=== PATIENT | female | born 1960 | race Caucasian/White ===

== ENCOUNTER 2020-09-11 09:06 | Outpatient (CLI) | payer OTHER, SELFPAY ==
--- NOTE | 2020-09-11 09:11 | MM_ITS ---
WS: [id number] BILATERAL SCREENING DIGITAL MAMMOGRAM WITH CAD HISTORY: SCREENING COMPARISON: None available. Bilateral CC and MLO views submitted. Computer aided detection analyzed. Breast composition: The breasts are heterogeneously dense, which may obscure small masses. No suspici ous masses, microcalcifications or architectural distortion. Benign scattered punctate calcifications and vascular calcifications. Lymph node in the posterior LEFT breast seen on the lateral projection. MM/[id number] IMPRESSION: BI-RADS: 2-Benign FOLLOW UP: 1 Year Follow-up
== END 2020-09-11 09:07 | disposition home or self-care (01) ==
LOC: RADSHAW 09:10
PROVIDERS: PCP Physician Assistant; Visit Provider Physician Assistant
DX: Z12.31 Encounter for screening mammogram for malignant neoplasm of breast (principal)
CPT/HCPCS: 77067

== ENCOUNTER → 2021-05-12 11:20 | Outpatient (BNVA) | payer OTHER, SELFPAY | PROVIDERS: PCP Physician Assistant; Visit Provider Nurse Practitioner | DX: N39.0 Urinary tract infection, site not specified (principal) | CPT/HCPCS: 81000 ==

== ENCOUNTER 2021-07-31 12:43 | Outpatient (CLI) | payer OTHER, SELFPAY ==
--- NOTE | 2021-07-31 13:14 | MM_ITS ---
WS: [id number] BILATERAL 3D TOMOSYNTHESIS DIGITAL DIAGNOSTIC MAMMOGRAPHY WITH CAD CLINICAL INFORMATION: MASTODYNIA HISTORY: History of skin cancer RIGHT Breast pain. COMPARISON: September 11, 2020 TECHNIQUE: Bilateral CC, MLO, and ML views. FINDINGS: The breasts are composed of heterogeneous fibroglandular density, which can limit the detection of sm all underlying mass lesions. Vascular calcification. A few additional punctate calcifications. Biopsy clip inferior medial RIGHT breast.. Ultrasound RIGHT breast is pending. Increasing focal asymmetric nodular density upper outer LEFT breast may represent cluster of LEFT nod es but indeterminant. This area measures approximately 2.2 x 0.8 cm. Recommend further evaluation wit h LEFT diagnostic mammography and ultrasound. ULTRASOUND BREAST RIGHT TECHNIQUE: Ultrasound right breast focused area of concern. CLINICAL INFORMATION: MASTODYNIA COMPARISON: None. FINDINGS: Ultrasound RIGHT breast at the 1 to 5:00 position at the areola in the area of concern. Shadowing bio psy clip seen at the 3:00 position. No suspicious cystic or solid lesions. No lesions to target for b iopsy. MM/[id number] IMPRESSION: BI-RADS: 0-Incomplete: Need additional imaging evaluation FOLLOW UP: Need Additional Imaging RECOMMEND LEFT BREAST DIAGNOSTIC MAMMOGRAPHY AND ULTRASOUND.
== END 2021-07-31 12:44 | disposition home or self-care (01) ==
LOC: RAD 12:45
PROVIDERS: PCP Physician Assistant; Visit Provider Physician Assistant
DX: N64.4 Mastodynia (principal)
CPT/HCPCS: 76642; 77062

== ENCOUNTER 2021-09-16 10:25 | Outpatient (CLI) | payer BC, MEDICAID, SELFPAY ==
--- NOTE | 2021-09-16 10:37 | MM_ITS ---
WS: [id number] LEFT 3D TOMOSYNTHESIS DIGITAL MAMMOGRAPHY WITH CAD CLINICAL INFORMATION: INCONCLUSIVE MAMMOGRAM HISTORY: COMPARISON: 07/31/2021 and 09/11/2020 TECHNIQUE: 3 views of the left breast were obtained. FINDINGS: The left breast is composed of heterogeneous fibroglandular density tissue, which can limit the detec tion of small underlying mass lesions. Vascular calcification. Again seen is asymmetric nodular densi ties upper outer LEFT breast unchanged from previous. Ultrasound is pending. ULTRASOUND BREAST LEFT TECHNIQUE: Ultrasound left breast focused area of concern. CLINICAL INFORMATION: INCONCLUSIVE MAMMOGRAM COMPARISON: None. FINDINGS: Ultrasound LEFT breast 12:00-200 position, 1-4 cm from the nipple. Dense underlying parenchymal tissu e. Evidence of fibrocystic changes. No suspicious cystic or solid lesions. No lesions to target for b iopsy. MM/[id number] IMPRESSION: BI-RADS: 2-Benign FOLLOW UP: 1 Year Follow-up Recommend return to annual screening mammography.
== END 2021-09-16 10:26 | disposition home or self-care (01) ==
PROVIDERS: PCP Physician Assistant; Visit Provider Physician Assistant
DX: R92.2 Inconclusive mammogram (principal)
CPT/HCPCS: 76642; 77061

== ENCOUNTER → 2021-10-21 08:01 | Outpatient (BNVA) | payer BC, MEDICAID, SELFPAY | PROVIDERS: PCP Physician Assistant; Referring Provider Physician Assistant; Visit Provider Podiatrist Foot & Ankle Surgery | DX: Z79.4 Long term (current) use of insulin (principal); E11.9 Type 2 diabetes mellitus without complications; M21.629 Bunionette of unspecified foot; Q82.8 Other specified congenital malformations of skin | CPT/HCPCS: 17110; 99204 ==

== ENCOUNTER 2021-10-28 06:14 | Day surgery (SDC) | payer BC, MEDICAID, SELFPAY ==
[2021-10-24 12:56] VITALS: BMI 21.9
[2021-10-28 06:40] VITALS: BP 143/70; PULSE 51; RESP 18; TEMP 36.3; O2SAT 99
[2021-10-28] MEDS: sodium chloride 0.9% 1,000 ML 30 ML IV (06:58)
--- NOTE | 2021-10-28 07:33 | P.HP_ITS ---
Same Day Surgery H&P Indication for Procedure/HPI DATE OF PROCEDURE: October 28, 2021 CHIEF COMPLAINT/INDICATIONFOR SURGICAL PROCEDURE: History of polyps PREOP DIAGNOSIS: History of polyps PLANNED PROCEDURE: Operation Date: 10/28/21 07:45 Proposed Procedures p Colonoscopy 51286,Z12.11(Not Applicable) - Buddy Doyle MD Medications/Allergies* Home Medications Medication Instructions Recorded Confirmed Type aspirin 81 mg tablet,delayed 81 mg PO DAILY 03/25/21 10/28/21 History release (Adult Aspirin Regimen) cholecalciferol (vitamin D3) 25 25 mcg PO DAILY 03/25/21 10/24/21 History mcg (1,000 unit) capsule pantoprazole 40 mg tablet,delayed 40 mg PO DAILY 03/25/21 10/24/21 History release albuterol sulfate 90 mcg/actuation 2 puff inhalation Q4H PRN 09/25/21 10/24/21 History aerosol inhaler Shortness Of Breath atorvastatin 80 mg tablet 80 mg PO DAILY 09/25/21 10/24/21 History estradiol 1 appful vaginal .Once a week 09/25/21 10/28/21 History fluticasone propionate 44 2 puff inhalation BID 09/25/21 10/24/21 History mcg/actuation HFA aerosol inhaler (Flovent HFA) fluticasone propionate 50 1 spray intranasal DAILY 09/25/21 10/24/21 History mcg/actuation nasal spray,suspension (Flonase Allergy Relief) ramipril 2.5 mg capsule 5 mg PO DAILY 09/25/21 10/24/21 History triamcinolone acetonide 0.025 % 1 applic topical BID 09/25/21 10/24/21 History topical cream cetirizine 10 mg tablet (All Day 10 mg PO DAILY PRN allergies 10/17/21 10/24/21 History Allergy (cetirizine)) Allergies/Adverse Reactions Allergy/AdvReac Type Severity Reaction Status Date / Time Sulfa (Sulfonamide Allergy Severe hives Verified 10/24/21 12:59 Antibiotics) ciprofloxacin Allergy ADR-Itching Verified 10/24/21 12:59 clopidogrel Allergy Unknown Verified 10/24/21 12:59 Current Medications: Generic Name Dose Route Start Last Admin Trade Name Freq PRN Reason Stop Dose Admin Sodium Chloride 1,000 mls @ 30 mls/hr 10/28/21 06:30 10/28/21 06:58 Sodium Chloride 0.9% IV 10/29/21 06:29 30 mls/hr .Q24H JEFF Administration Pertinent History/Comorbid Conditions* Medical History (Updated 10/17/21 @ 11:03 by Buddy Doyle MD) Diabetes History of colon polyps History of coronary angiogram 04/2020, Hyperlipidemia Hypertension Myocardial infarction x2 Sleep apnea Surgical History (Updated 03/25/21 @ 14:48 by Emanuel Silverio MD) History of adenoidectomy History of x3 History of cholecystectomy History of lumpectomy of right breast 2008 History of partial hysterectomy 1980s History of tonsillectomy Family History (Updated 03/25/21 @ 14:21 by Karla Elizabeth) Diabetes CAD (coronary artery disease) Dementia Denies family history of Cancer Stroke Social History Smoking and tobacco status: current some day smoker Pertinent Exam Findings alert, oriented x 3, clear to auscultation bilaterally, regular rate & rhythm, operative site marked and procedure specific exam findings Recommendations Surgery/Procedure today Coding Level of Care Code Acute Anesthesiology Medical Doctor for Kristin Carrera
--- NOTE | 2021-10-28 08:05 | ANES.PREANE2 ---
Pre-Anesthetic Assessment Height/Weight: Height 1.6 m Weight 56.245 kg Temp Pulse Resp BP Pulse Ox O2 Del Method 97.3 F L 51 L 18 143/70 99 10/28/21 06:40 10/28/21 06:40 10/28/21 06:40 10/28/21 06:40 10/28/21 06:40 10/28/21 06:40 Preop Diagnosis: History of polyps Operation Date: 10/28/21 07:45 Proposed Procedures p Colonoscopy 15490,Z12.11(Not Applicable) - Buddy Doyle MD Was Beta Jonn taken within 24 hours: N/A Was Clonidine taken within 24 hours: N/A Last intake: Intake Last Liquid Date 10/27/21 Last Liquid Time 21:30 Last Solid Date 10/26/21 Last Solid Time 17:30 Social Tobacco 1/4 ppweek pack(s) per day Exam alert and oriented x 3 Airway Submandibular: within normal limits Cervical ROM: within normal limits Mallampati: Class I History/ROS No significant history except as noted Pulmonary Chronic Obstructive Pulmonary Disease allergies CV/HEM Coronary Artery Disease, Hypertension and Myocardial Infarction (stents X4 2020) None reported Hepatic None reported GI Gastroesophageal Reflux Disease Metabolic None reported Musc/skel None reported Neuropsych None reported Anesthetic Plan ASA status: 3 Anesthesia: MAC Risk of > 500 ml blood loss (7ml/kg in children): No Medications/Allergies Home Medications Medication Instructions Recorded Confirmed Last Taken Type aspirin 81 mg tablet,delayed 81 mg PO DAILY 03/25/21 10/28/21 10/25/21 History release (Adult Aspirin Regimen) cholecalciferol (vitamin D3) 25 25 mcg PO DAILY 03/25/21 10/24/21 10/26/21 History mcg (1,000 unit) capsule pantoprazole 40 mg tablet,delayed 40 mg PO DAILY 03/25/21 10/24/21 10/26/21 History release albuterol sulfate 90 mcg/actuation 2 puff inhalation Q4H PRN 09/25/21 10/24/21 Unknown History aerosol inhaler Shortness Of Breath atorvastatin 80 mg tablet 80 mg PO DAILY 09/25/21 10/24/21 10/26/21 History estradiol 1 appful vaginal .Once a week 09/25/21 10/28/21 10/26/21 History fluticasone propionate 44 2 puff inhalation BID 09/25/21 10/24/21 10/26/21 History mcg/actuation HFA aerosol inhaler (Flovent HFA) fluticasone propionate 50 1 spray intranasal DAILY 09/25/21 10/24/21 10/26/21 History mcg/actuation nasal spray,suspension (Flonase Allergy Relief) ramipril 2.5 mg capsule 5 mg PO DAILY 09/25/21 10/24/21 10/26/21 History triamcinolone acetonide 0.025 % 1 applic topical BID 09/25/21 10/24/21 Unknown History topical cream cetirizine 10 mg tablet (All Day 10 mg PO DAILY PRN allergies 10/17/21 10/24/21 10/26/21 History Allergy (cetirizine)) Allergies Allergy/AdvReac Type Severity Reaction Status Date / Time Sulfa (Sulfonamide Allergy Severe hives Verified 10/24/21 12:59 Antibiotics) ciprofloxacin Allergy ADR-Itching Verified 10/24/21 12:59 clopidogrel Allergy Unknown Verified 10/24/21 12:59 Current Medications Generic Name Dose Route Start Last Admin Trade Name Freq PRN Reason Stop Dose Admin Sodium Chloride 1,000 mls @ 30 mls/hr 10/28/21 06:30 10/28/21 06:58 Sodium Chloride 0.9% IV 10/29/21 06:29 30 mls/hr .Q24H JEFF Administration PFSH Anesthesia Medical History Diabetes History of colon polyps History of coronary angiogram 04/2020, Hyperlipidemia Hypertension Myocardial infarction x2 Sleep apnea Surgical History History of adenoidectomy History of x3 History of cholecystectomy History of lumpectomy of right breast 2008 History of partial hysterectomy 1980s History of tonsillectomy Family History Other CAD (coronary artery disease) Dementia Diabetes Denies family history of Cancer Stroke Social History Smoking and tobacco status: current some day smoker Data Anesthesia Cardiac Studies: No Data to Display
[2021-10-28 08:46] VITALS: BP 175/77; PULSE 63; RESP 16; O2SAT 97
[2021-10-28 08:51] VITALS: BP 153/79; PULSE 60; RESP 18; O2SAT 92
[2021-10-28 08:56] VITALS: BP 171/84; PULSE 66; RESP 18; O2SAT 96
--- NOTE | 2021-10-28 13:25 | ANE.PACU2 ---
Inpatient post-anesthesia follow up: Airway intact: Yes Vital signs: Temperature 97.3 F Pulse Rate 66 Respiratory Rate 18 Blood Pressure 171/84 Pulse Oximetry 96 Oxygen Delivery Me thod Room Air Oxygen Flow Rate Fraction of Inspir ed Oxygen Hydration adequate: Yes Nausea and vomiting: No Pain level: 1 Mental status: Baseline
== END 2021-10-28 09:16 | disposition home or self-care (01) ==
PROVIDERS: PCP Physician Assistant; Visit Provider Internal Medicine
PROC: 0DJD8ZZ Inspection of Lower Intestinal Tract, Via Natural or Artificial Opening Endoscopic (ICD-10-PCS; CPT 45378; principal; 2021-10-28 07:45)
DX: Z12.11 Encounter for screening for malignant neoplasm of colon (principal); E11.9 Type 2 diabetes mellitus without complications; I10 Essential (primary) hypertension; E78.5 Hyperlipidemia, unspecified; J44.9 Chronic obstructive pulmonary disease, unspecified; I25.2 Old myocardial infarction; K21.9 Gastro-esophageal reflux disease without esophagitis; G47.30 Sleep apnea, unspecified; Z86.010 Personal history of colon polyps; F17.200 Nicotine dependence, unspecified, uncomplicated; Z79.51 Long term (current) use of inhaled steroids; Z79.82 Long term (current) use of aspirin; Z88.2 Allergy status to sulfonamides; Z88.1 Allergy status to other antibiotic agents; I25.10 Atherosclerotic heart disease of native coronary artery without angina pectoris; Z95.5 Presence of coronary angioplasty implant and graft
CPT/HCPCS: 45378; J2704; J3490; J7030

== ENCOUNTER → 2022-02-03 10:45 | Outpatient (BNVA) | payer BC, MEDICAID, SELFPAY | PROVIDERS: PCP Physician Assistant; Visit Provider Urology | DX: R31.29 Other microscopic hematuria (principal); N39.0 Urinary tract infection, site not specified; Z72.0 Tobacco use | CPT/HCPCS: 87086; 88112 ==

== ENCOUNTER 2022-05-13 14:24 | Outpatient (CLI) | payer BC, MEDICAID, SELFPAY | END 2022-05-13 14:25 | disposition home or self-care (01) | LOC: SPT 14:25 | PROVIDERS: PCP Physician Assistant; Visit Provider Orthopaedic Surgery | DX: Z46.89 Encounter for fitting and adjustment of other specified devices (principal); M67.432 Ganglion, left wrist | CPT/HCPCS: 97760; L3908 ==

== ENCOUNTER 2022-06-17 08:35 | Outpatient (CLI) | payer BC, MEDICAID, SELFPAY ==
--- NOTE | 2022-06-17 08:30 | US_ITS ---
WS: [id number] RENAL ULTRASOUND HISTORY: HEMATURIA COMPARISON: None available. TECHNIQUE: 2-D and color Doppler imaging of the kidney submitted. Right kidney: 11.1 cm x 3.8 cm x 4.0 cm. Cortex: 1.3 cm Normal echogenicity with no hydronephrosis or mass. Extrarenal pelvis. Left kidney: 10.6 cm x 3.7 cm x 4.2 cm. Cortex: 1.2 cm Normal echogenicity with no hydronephrosis or mass. Extrarenal pelvis. Aorta: Mild atherosclerosis. Urinary Bladder: Normal distention. US/US renal BI* [id number] IMPRESSION: 1. No hydronephrosis. 2. Normal size kidneys. 3. Small fluid collections bilaterally in the central kidneys are probably ext rarenal pelves.
--- NOTE | 2022-06-17 08:45 | XR_ITS ---
WS: [id number] KUB, AP view, 06/17/2022 Clinical Data: HEMATURIA Comparison: None. Findings: No abnormal intraabdominal masses or calcifications are seen. There is no dilatated small bowel or ev idence of obstruction. There are surgical clips in the right upper quadrant from a cholecystectomy. There is a moderate amou nt of fecal material throughout the colon. There are surgical clips in the true pelvis. XR/XR KUB [id number] Impression: Negative KUB.
== END 2022-06-17 08:36 | disposition home or self-care (01) ==
LOC: RAD 08:41
PROVIDERS: PCP Physician Assistant; Visit Provider Urology
DX: R31.29 Other microscopic hematuria (principal)
CPT/HCPCS: 74018; 76770; 81003

== ENCOUNTER → 2022-12-10 08:56 | Outpatient (BNVA) | payer BC, MEDICAID, SELFPAY | PROVIDERS: PCP Physician Assistant; Visit Provider Nurse Practitioner | DX: M67.432 Ganglion, left wrist (principal); M25.532 Pain in left wrist; Z01.812 Encounter for preprocedural laboratory examination | CPT/HCPCS: 36415; 73110; 80053; 85025 ==

== ENCOUNTER 2022-12-19 05:25 | Day surgery (SDC) | payer BC, MEDICAID, SELFPAY ==
[2022-12-19] VITALS (9 sets, daily range): BP systolic 113–169; BP diastolic 62–95; PULSE 44–58; RESP 18–20; TEMP 36.1–36.2; O2SAT 95–100; BMI 24.7
[2022-12-19] MEDS: sodium chloride 0.9% 1,000 ML 30 ML IV (06:02)
[2022-12-19] MEDS: acetaminophen 1,000 MG/100 ML PIGGYBACK 400 MG IV (06:07)
[2022-12-19] MEDS: CELEcoxib 200 mg Capsule 400 MG PO (06:08)
[2022-12-19 06:20] LABS: Glucose Point of Care 142 mg/dL (70-110)
--- NOTE | 2022-12-19 06:43 | ANES.PREANE2 ---
Pre-Anesthetic Assessment Height/Weight: Height 1.6 m Weight 63.503 kg Temp Pulse Resp BP Pulse Ox O2 Del Method 97.2 F L 45 L 18 138/80 100 Room Air 12/19/22 06:00 12/19/22 06:00 12/19/22 06:00 12/19/22 06:00 12/19/22 06:00 12/19/22 06:00 Operation Date: 12/19/22 07:00 Proposed Procedures p Excision Of Ganglion Cyst Removal Of Ganglion Cyst(Left) - Cheyenne Thomas MD Familial anesthetic complications: None Was Beta Jonn taken within 24 hours: N/A Was Clonidine taken within 24 hours: N/A Last intake: Intake Last Liquid Date 12/19/22 Last Liquid Time 20:00 Last Solid Date 12/18/22 Last Solid Time 18:00 Social Tobacco and No alcohol Exam alert, oriented x 3, clear to auscultation bilaterally and regular rate & rhythm Airway Mallampati: Class II Dentition: full CV/HEM Hypertension GI Gastroesophageal Reflux Disease Metabolic Diabetes Mellitus and Hyperlipidemia Anesthetic Plan ASA status: 3 Anesthesia: Choice Risk of > 500 ml blood loss (7ml/kg in children): No Medications/Allergies Home Medications Medication Instructions Recorded Confirmed Last Taken Type aspirin 81 mg tablet,delayed 81 mg PO DAILY 03/25/21 12/18/22 12/15/22 History release (Adult Aspirin Regimen) cholecalciferol (vitamin D3) 25 25 mcg PO DAILY 03/25/21 12/18/22 12/17/22 History mcg (1,000 unit) capsule pantoprazole 40 mg tablet,delayed 40 mg PO DAILY 03/25/21 12/18/22 12/18/22 History release albuterol sulfate 90 mcg/actuation 2 puff inhalation Q4H PRN 09/25/21 12/19/22 Unknown History aerosol inhaler Shortness Of Breath atorvastatin 80 mg tablet 80 mg PO DAILY 09/25/21 12/18/22 12/18/22 History estradiol 0.01% (0.1 mg/gram) 1 appful vaginal .Once a week 09/25/21 12/18/22 12/15/22 History vaginal cream fluticasone propionate 50 1 spray intranasal DAILY 09/25/21 12/19/22 10/26/21 History mcg/actuation nasal spray,suspension (Flonase Allergy Relief) ramipril 2.5 mg capsule 5 mg PO DAILY 09/25/21 12/18/22 12/18/22 History fluticasone propionate 44 2 puff inhalation BID PRN Wheezing 12/02/21 12/19/22 Unknown History mcg/actuation HFA aerosol inhaler (Flovent HFA) cock up splint #1 ea 05/13/22 12/10/22 Unknown Rx levocetirizine 5 mg tablet 5 mg PO DAILY 12/18/22 12/18/22 12/17/22 History metronidazole 0.75 % topical gel 1 applic topical BID PRN Rash 12/18/22 12/19/22 Unknown History (Rosadan) Allergies Allergy/AdvReac Type Severity Reaction Status Date / Time Sulfa (Sulfonamide Allergy Severe hives Verified 12/19/22 06:04 Antibiotics) ciprofloxacin Allergy ADR-Itching Verified 12/19/22 06:04 clopidogrel Allergy Unknown Verified 12/19/22 06:04 Current Medications Generic Name Dose Route Start Last Admin Trade Name Freq PRN Reason Stop Dose Admin Sodium Chloride 1,000 mls @ 30 mls/hr 12/19/22 06:00 12/19/22 06:02 Sodium Chloride 0.9% IV 12/20/22 05:59 30 mls/hr .Q24H JEFF Administration PFSH Anesthesia Medical History Diabetes History of colon polyps History of coronary angiogram 04/2020, Hyperlipidemia Hypertension Myocardial infarction x2 Recurrent urinary tract infection Sleep apnea Surgical History History of adenoidectomy History of x3 History of cholecystectomy History of lumpectomy of right breast 2008 History of partial hysterectomy 1980s History of tonsillectomy Family History Mother , AT AGE 80 Hypertension Father , AT AGE 82 Lung disease Other CAD (coronary artery disease) Dementia Diabetes Denies family history of Cancer Stroke Social History Smoking and tobacco/nicotine status: current some day tobacco/nicotine user Alcohol intake: current Alcohol intake frequency: few times a month Marital status: / Current occupational status: retired Data Anesthesia 12/19/22 06:29 Cardiac Studies: No Data to Display
[2022-12-19 07:01] LABS: Anion Gap 11.8 (5-19); Blood Urea Nitrogen 13 mg/dL (8-23); Calcium 9.4 mg/dL (8.5-10.5); Carbon Dioxide 28 mmol/L (22-29); Chloride 103 mmol/L (98-107); Glomerular Filtration Rate 72.2 mL/min (90-130); Glucose 179 mg/dL (65-115); Osmolality Calculated 293 mOsm/kg (285-295); Potassium 3.8 mmol/L (3.5-5.1); Sodium 139 mmol/L (136-145)
--- NOTE | 2022-12-19 07:01 | P.HPUD_ITS ---
Surgery/Procedure H&P Update DATE OF PROCEDURE: December 19, 2022 DATE H&P PERFORMED: 12/10/22 H&P UPDATE INFORMATION: I have reviewed H&P completed within last 30 days, I have examined patient prior to procedure, No changes to prior documentation and H&P is in [facility] [place] EMR on date indicated PLANNED PROCEDURE: Operation Date: 12/19/22 07:00 Proposed Procedures p Excision Of Ganglion Cyst Removal Of Ganglion Cyst(Left) - Cheyenne Thomas MD Related Problem List Diagnoses (1) Ganglion cyst of dorsum of left wrist:
[2022-12-19] MEDS: ceFAZolin 2,000 MG in sodium chloride 0.9% (plus) 50 ML 100 MG IV (07:06)
[2022-12-19] MEDS: BUPivacaine 0.5% INJ 30 mL INJECTION (07:40)
--- NOTE | 2022-12-19 08:39 | P.OP_ITS ---
Operative Report Date of procedure: December 19, 2022 Pre-op diagnosis: Left dorsal ulnar wrist ganglion Post-op diagnosis: Left dorsal ulnar wrist ganglion Procedure done: Left dorsal ulnar wrist ganglion excision Specimens removed/disposition: None Surgeon: Cheyenne Thomas MD Retail Advertising Executive: None Anesthesia: General (Per LMA, ASA 3) Estimated blood loss (mL): 2 Tourniquet time (min): 33 (At 250 mmHg) IV fluids (mL): 800 Urine output (mL): 0 (No Veras) Complications: None Condition: stable Disposition: PACU (Then return to same-day surgery for discharge to home) Brief History: This is an established 62 year old female patient who presented to the office with a dorsal ulnar left wrist ganglion cyst. Patient states that the mass has been present for up to 8 months. She states that the mass fluctuates in size.? 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 She states the cyst is painful particularly if it is bumped, and she states wearing gloves will increase the pain due to pressure.? On 05/13/22 Dr. 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 Procedure: The patient was brought to the operating theater. The patient had a general anesthetic per LMA, ASA 3. Following exsanguination of the arm, the tourniquet was elevated to 250 mmHg for a total tourniquet time of 33 minutes. The patient was also given Ancef 2 g preoperatively. The arm was then prepped and draped with DuraPrep in usual fashion with the arm draped free. A surgical pause was performed. At the time, the surgical pause, we confirmed the site and side of surgery. We also confirmed the patient's identity, appropriate and timely administration of preoperative antibiotics and preoperative surgical markings. An incision was then made across the dorsal ulnar aspect of the wrist centering over the ganglion. Dissection continued through skin and soft tissues using a scalpel. Soft tissues were then spread further with scissors to allow access to the ganglion. The ganglion was identified and went along the extensor tendon ulnarly, it also dipped volarly. The cyst was noted to be quite thin. A portion of the cyst was removed. There was significant ganglionic fluid which was debrided. The wound was then copiously irrigated until all ganglion fluid was absent. A specific area of joint feeding into the ganglion cyst was not able to be identified. Once we had irrigated the wound, attention was directed to closure. The wound was irrigated with ropivacaine plain. It was then closed with 4-0 Monocryl in a subcuticular fashion after subcutaneous sutures were placed. Sterile dressing was then placed consisting of Dermabond, Steri-Strips, OpSite, fluffed fluffs, sterile soft roll, and an Jordy wrap. The tourniquet was released after 33 minutes. There were no complications. There were no specimens. The procedure was well tolerated. Plan is the patient will be discharged home. Related Problem List Diagnoses (1) Ganglion cyst of dorsum of left wrist:
--- NOTE | 2022-12-19 08:40 | ANE.PACU2 ---
Inpatient post-anesthesia follow up: Airway intact: Yes Vital signs: Temperature 97.0 F Pulse Rate 44 Respiratory Rate 18 Blood Pressure 169/95 Pulse Oximetry 100 Oxygen Delivery Me thod Room Air Oxygen Flow Rate Fraction of Inspir ed Oxygen Hydration adequate: Yes Nausea and vomiting: No Pain level: 1 Mental status: Baseline
[2022-12-19] MEDS: HYDROcodone-acetaminophen 5-325 mg Tablet 1 TAB PO (08:50)
== END 2022-12-19 09:10 | disposition home or self-care (01) ==
PROVIDERS: Anesthesiology; PCP Physician Assistant; Visit Provider Specialist
PROC: (CPT 25111; principal; 2022-12-19 07:00)
DX: M67.432 Ganglion, left wrist (principal); I10 Essential (primary) hypertension; K21.9 Gastro-esophageal reflux disease without esophagitis; E11.9 Type 2 diabetes mellitus without complications; E78.5 Hyperlipidemia, unspecified; Z79.82 Long term (current) use of aspirin; I25.2 Old myocardial infarction; G47.30 Sleep apnea, unspecified; F17.210 Nicotine dependence, cigarettes, uncomplicated
CPT/HCPCS: 25111; 36416; 80048; 82962; J0131; J0690; J1100; J2405; J2704; J3010; J3490; J7030

== ENCOUNTER → 2023-01-01 08:07 | Outpatient (BNVA) | payer MEDICARE, BC, MEDICAID, SELFPAY | PROVIDERS: PCP Physician Assistant; Visit Provider Nurse Practitioner | DX: Z98.890 Other specified postprocedural states (principal); M67.432 Ganglion, left wrist | CPT/HCPCS: 99024 ==

== ENCOUNTER 2023-05-08 08:46 | Outpatient (CLI) | payer MEDICARE, MEDICAID, SELFPAY ==
--- NOTE | 2023-05-08 08:52 | MM_ITS ---
WS: [id number] Bilateral screening 3D tomosynthesis digital mammogram, 05/08/2023 Clinical Data: SCREENING Comparison: 09/16/2021, 07/31/2021, 09/11/2020. Findings: The breast parenchymal pattern shows heterogeneous density. No spiculated masses or clustered calcifi cations are seen. There are no secondary signs of carcinoma. There are vascular calcifications in bot h breasts. There are lymph nodes in both axilla. Impression: 1. Negative bilateral mammogram unchanged. 2. Recommend annual screening mammograms. MM/[place] [id number] BIRADS: 1-Negative FOLLOW UP: 1 Year Follow-up The CAD broadcast checker was used.
== END 2023-05-08 08:47 | disposition home or self-care (01) ==
LOC: RAD 08:47
PROVIDERS: PCP Physician Assistant; Visit Provider Physician Assistant
DX: Z12.31 Encounter for screening mammogram for malignant neoplasm of breast (principal)
CPT/HCPCS: 77063; 77067

== ENCOUNTER → 2023-12-03 09:24 | Outpatient (BNVA) | payer MEDICARE, MEDICAID, SELFPAY | PROVIDERS: PCP Physician Assistant; Visit Provider Nurse Practitioner Family | DX: L81.4 Other melanin hyperpigmentation (principal); L57.8 Other skin changes due to chronic exposure to nonionizing radiation; D18.01 Hemangioma of skin and subcutaneous tissue; L57.0 Actinic keratosis; L82.0 Inflamed seborrheic keratosis; L56.8 Other specified acute skin changes due to ultraviolet radiation; Z85.828 Personal history of other malignant neoplasm of skin | CPT/HCPCS: 17000; 17110; 99213 ==

== ENCOUNTER → 2024-05-17 10:16 | Outpatient (BNVA) | payer MEDICAID, SELFPAY | PROVIDERS: PCP Physician Assistant; Visit Provider Nurse Practitioner Family | DX: L30.8 Other specified dermatitis (principal); L82.0 Inflamed seborrheic keratosis; D18.01 Hemangioma of skin and subcutaneous tissue; L57.8 Other skin changes due to chronic exposure to nonionizing radiation; L81.4 Other melanin hyperpigmentation; Z08 Encounter for follow-up examination after completed treatment for malignant neoplasm; Z85.828 Personal history of other malignant neoplasm of skin; L57.0 Actinic keratosis | CPT/HCPCS: 17000; 99214 ==

== ENCOUNTER 2024-08-08 08:48 | Outpatient (CLI) | payer MEDICARE, MEDICAID, SELFPAY ==
--- NOTE | 2024-08-08 08:51 | MM_ITS ---
WS: [id number] BILATERAL SCREENING DIGITAL TOMOSYNTHESIS MAMMOGRAM WITH CAD HISTORY: SCREENING COMPARISON: 05/08/2023, 09/16/2021, 09/11/2020 Bilateral CC and MLO views with tomosynthesis and synthetic mammography submitted. Computer aided detection analyzed. Breast composition: The breasts are heterogeneously dense, which may obscure small masses. No suspicious masses, microcalcifications or architectural distortion. Area of architectural distortion in the lateral RIGHT breast corresponds to the area of the prior biopsy. Distortion is stable. Benign vascul ar calcifications. Biopsy clip in the medial RIGHT breast. No suspicious grouping of calcifications. MM/MM scr BI tomosynthesis [id number] IMPRESSION: BI-RADS: 2 - Benign FOLLOW UP: 1 Year Follow-up
== END 2024-08-08 08:49 | disposition home or self-care (01) ==
PROVIDERS: PCP Physician Assistant; Visit Provider Physician Assistant
DX: Z12.31 Encounter for screening mammogram for malignant neoplasm of breast (principal); R92.333 Mammographic heterogeneous density, bilateral breasts; N64.89 Other specified disorders of breast; R92.1 Mammographic calcification found on diagnostic imaging of breast
CPT/HCPCS: 77063; 77067

== ENCOUNTER 2024-08-26 10:08 | Outpatient (CLI) | payer MEDICARE, MEDICAID, SELFPAY ==
--- NOTE | 2024-08-26 10:13 | USCV_ITS ---
Lisset Atkinson Age: 64 Gender: F : 1960 Exam Date: 08/26/2024 10:22 Ordering Phys: Latasha Huber Technologist: THUAN [place] [facility] [place]: stenosis Risk Factors: Previous Vascular Surgery: Right Brachial BP: / Left Brachial BP: / Right Left Velocity (cm/s) Spectral Plaque Velocity (cm/s) Spectral Plaque Syst/Diast Broadening Syst/Diast Broadening 67.20/ 16.70 Prox CCA 79.00 / 20.90 89.10/ 28.30 Mid CCA 77.10 / 22.00 85.20/ 28.30 Distal CCA 79.70 / 25.30 47.00/ 17.60 Prox ICA 47.10 / 14.90 62.20/ 23.10 Mid ICA 69.50 / 23.30 62.20/ 23.10 Distal ICA 60.80 / 24.50 73.40 ECA 84.90 0.60 ICA/CCA 0.60 Antegrade Vertebral Antegrade 36.50/ 11.00 cm/s 30.00/ 10.00 cm/s Tri Subclavian Tri 105.9 101.4 0 0 FINDINGS Comparison: none available. No significant elevation of systolic or diastolic velocities. Waveforms are normal. Minimal calcified plaque in the bifurcations. CONCLUSIONS Bilateral ICA stenosis less than 50%. Mild bilateral atherosclerosis. Dr. Fallon Pimentel DO (Electronically Signed) Final Date: 26 August 2024 12:43 S
== END 2024-08-26 10:09 | disposition home or self-care (01) ==
PROVIDERS: PCP Physician Assistant; Visit Provider Physician Assistant
DX: R42 Dizziness and giddiness (principal)
CPT/HCPCS: 93880